=== PATIENT | male | born 1990 | race Caucasian/White ===

== ENCOUNTER 2023-03-31 08:08 | Outpatient (CLI) | payer BC, SELFPAY | END 2023-03-31 08:09 | disposition home or self-care (01) | PROVIDERS: PCP Family Medicine; Visit Provider Family Medicine | DX: Z01.818 Encounter for other preprocedural examination (principal) | CPT/HCPCS: 80048; 85025 ==

== ENCOUNTER 2023-04-05 06:11 | Day surgery (SDC) | payer BC, SELFPAY ==
[2023-04-05] VITALS (14 sets, daily range): BP systolic 122–157; BP diastolic 80–102; PULSE 63–71; RESP 16–17; TEMP 36.1–36.6; O2SAT 63–99; BMI 32.9
[2023-04-05] MEDS: LACTATED RINGERS 1000 ML 1,000 ML 100 ML IV ×2 (06:15→08:24)
[2023-04-05] MEDS: SODIUM CHLORIDE 0.9 % (FLUSH) 10 ML SYRINGE IVF (06:26)
--- NOTE | 2023-04-05 07:29 | PM.GSPRC ---
Operative Note Date of procedure: 04/05/23 Pre-op diagnosis: 1. Symptomatic left inguinal hernia. 2. Desire for permanent method of contraception. Post-op diagnosis: 1. Indirect left inguinal hernia with incarcerated omentum. 2. Desire for permanent method of contraception. Type of Procedure: 1. Open left inguinal hernia repair with mesh. 2. Vasectomy. Indications: 32-year-old male was seen in clinic for evaluation of a left inguinal bulge that was initially noticed 15 years ago. With time the bulge has increased in size and patient is able to notice it easily. About 3 years ago patient was camping and sleeping on the cot. This prompted development of severe pain in the bulge and brought him to the emergency room. Patient's hernia was found to be incarcerated and was reduced in the emergency room. Patient is also interested in vasectomy. He has 2 children and would like to proceed with permanent method of contraception. On clinical exam with the patient standing up there was a visible left inguinal hernia bulge that was extending into the left hemiscrotum. There was no evidence of a right inguinal hernia on exam. Given patient's clinical history and his physical exam, an open left inguinal hernia repair with vasectomy was recommended. The procedure was discussed in detail. The risks associated procedure including infection, bleeding, injury to preperitoneal organs, and hernia recurrence were all discussed with the patient, and he agreed to proceed. Procedure Description: After discussing the risks and benefits of the procedure, the patient signed informed consent.? The operative site was marked and the patient was brought to the operating room and placed on the operating table in supine position.? Care was taken to pad the patient's pressure points.?? The patient was then intubated by anesthesia.?? The operative site was then prepped and draped in the usual sterile fashion.? A time-out was then performed. Surgical site was prepped and draped in sterile fashion on the left side. Site of the incision was marked with a marking pen and local anesthetic was injected. An oblique incision was made just above and medial to inguinal ligament. Subcutaneous tissue was dissected to external obliques. Superficial subcutaneous vascular branches were clamped, divided and tied with 3-0 Vicryl ties. Small incision was made through the external oblique aponeurosis with scalpel. I then used Metzenbaum scissors to dissect under external obliques and extend my incision. Mosquito clamps were placed on the edges of external oblique exposing the inguinal floor. The left Ilioinguinal nerve was identified and was going through the plain of dissection. The nerve was divided proximally and distally and a 3 cm segment of it was excised. This was not sent to pathology. I then identified the spermatic cord and the hernia sac. I bluntly dissected subcutaneous tissues in order to place Giovani drain around the cord structures. Cremasteric fibers were peeled off and dissected off the hernia sac and cord structures. This was an indirect hernia. The hernia sac was from the spermatic cord bluntly and with cautery. The processus vaginalis was clamped distally and divided with cautery proximally. The distal part was tied with a Vicryl tie. The proximal hernia sac was then opened and examined from the inside. Omentum was noted to be incarcerated through the hernia sac. The omentum was reduced into the abdomen. A stitch using 3-0 Vicryl was placed near the base of the hernia sac through the sac and the hernia sac tied off. Hernia sac was then excised and not sent to pathology. The cut edge of the hernia sac was then oversewn with a locking 3-0 Vicryl suture. This was then pushed into preperitoneal space through the internal ring. Surgical field was examined for bleeding and hemostasis was achieved with cautery and Vicryl ties. The spermatic cord was then examined and vas deferens was identified in the left side. Vas deferens was mobilized off the spermatic cord. It was clamped with right angle clamps proximally and distally and a segment of 2.5 cm of vas deferens was excised with Metzenbaum scissors. The clamped ends were tied with a Vicryl tie. The excised segment of vas deferens was sent to pathology as left side vas deferens. A Bard mesh plug was inserted through the internal ring and secured to the adjacent tissues with interrupted 0-0 Neurolon sutures. Bard mesh onlay was also used for hernia repair. The mesh onlay was sutured in place with interrupted 0-0 Neurolon sutures to the conjoint tendon medially and shelving edge laterally, pubic tubercle inferiorly. Simple interrupted sutures were placed using 0-0 Neurolon at the base of internal inguinal ring making it only large enough to fit a tip of one finger through. Spermatic cord was placed back into scrotum. Freeman Spur drain was removed. External oblique aponeurosis was closed with a running 2-0 Vicryl. Additional local anesthetic was injected into subcutaneous tissues. Germain's fascia and subcutaneous tissue was re-approximated with interrupted Vicryl stitches. Skin incision was closed with 4-0 Monocryl subcuticular stitch. Steri strips and sterile dressing were applied over incision. I then proceeded with vasectomy on the right side. The right vas deferens was located in the scrotum. The vas was grasped with my fingers. 1% Lidocaine was injected at the site of surgical incision and around the vas deferens. The right scrotal incision was made with a scalpel. Soft tissues were dissected with a fine dissecting clamp. The vas deferens was clamped with a ring clamp. Fibrous tissue encasing the vas was peeled off bluntly until it was clear. Clips were placed on the proximal and distal ends of the vas deferens and 1 cm segment was excised. This segment was sent to pathology as the right vas deferens. No bleeding was seen. Right scrotal incision was left open. Bacitracin and gauze were placed over the incision. All counts were correct at the end of the case. Patient tolerated this procedure well and was transferred to PACU in stable condition. Findings: Bilateral vas deferens was identified and divided. Left inguinal hernia had incarcerated omentum. The omentum was reduced and hernia was repaired with mesh plug and onlay. Anest[facility]: [facility] Surgeon: Jean-Paul Rausch MD Estimated blood loss (mL): 5 Additional Specimen Information: 1. Left vas deferens. 2. Right vas deferens. Condition: stable Disposition: PACU
[2023-04-05] MEDS: CEFAZOLIN 2 GM INJ IVP (07:35)
--- NOTE | 2023-04-05 07:45 | W.ANESCHARGE ---
Anesthesia Charges Start Date/Time Anesthesia Start Date: 04/05/23 Anesthesia Start Time: 07:27 Stop Date/Time Anesthesia Stop Date: 04/05/23 Anesthesia Stop Time: 09:37
--- NOTE | 2023-04-05 07:46 | SUR.OPER ---
PATIENT QUESTIONS ANSWERED SATISFACTORILY PREOPERATIVELY. PATIENT BROUGHT TO OR #1 PER CART. Patient positioned supine on OR #1 bed. The perioperative team supported arms bilaterally on arm boards. Final approval of positioning by surgeon.
[2023-04-05] MEDS: BUPIVACAINE 0.25% 30 ML 10 ML INJECTION (07:50)
[2023-04-05] MEDS: BACITRACIN OINTMENT BULK TUBE 1 APPLIC TOPICAL (09:17)
[2023-04-05] MEDS: BUPIVACAINE 0.25% 30 ML INJECTION (09:22)
--- NOTE | 2023-04-05 09:36 | W.ANESCHARGE ---
Anesthesia Charges Start Date/Time Anesthesia Start Date: 04/05/23 Anesthesia Start Time: 07:27 Stop Date/Time Anesthesia Stop Date: 04/05/23 Anesthesia Stop Time: 09:37
--- NOTE | 2023-04-05 10:14 | SUR.PHASEI ---
patient met discharge criteria per anesthesia
== END 2023-04-05 11:25 | disposition home or self-care (01) ==
PROVIDERS: PCP Family Medicine; Visit Provider Surgery
PROC: (CPT 49507; principal; 2023-04-05 07:30)
DX: K40.30 Unilateral inguinal hernia, with obstruction, without gangrene, not specified as recurrent (principal); Z30.2 Encounter for sterilization
CPT/HCPCS: 49507; 55250; 00830; 88302; C1781; J0330; J0665; J0690; J1100; J1200; J1885; J2405; J2704; J2710; J3010; J3490; J7120